=== PATIENT | female | born 1995 | race African-American/Black ===

== ENCOUNTER 2019-09-14 10:07 | Emergency (ER) | payer SELFPAY ==
[~2019-09-14] VITALS: Ht 170.2 cm; Wt 108.0 kg
[2019-09-14 11:07] VITALS: BP 134/82
--- NOTE | 2019-09-14 11:11 | PHYS DOC ---
Adult General Chief Complaint Chief Complaint: FLU SYMPTOM HPI HPI Patient is a 24 year old female who presents with fever, cough, runny nose, body aches has been ongoing for week and a half. Patient also said loss of appetite. Patient states she is improving however. Review of Systems Review of Systems Constitutional: Reports fever or chills and body aches. Eyes: Denies change in visual acuity, redness, or eye pain [] HENT: Reports nasal congestion, sore throat, and runny nose. Respiratory: Reports cough. Denies shortness of breath. Cardiovascular: No additional information not addressed in HPI [] GI: Reports nausea and vomiting. Denies abdominal pain, bloody stools or diarrhea [] : Denies dysuria or hematuria [] Musculoskeletal: Denies back pain or joint pain [] Integument: Denies rash or skin lesions [] Neurologic: Reports headache, denies focal weakness or sensory changes [] Endocrine: Denies polyuria or polydipsia [] Complete systems were reviewed and found to be within normal limits, except as documented in this note. Allergies Allergies Allergies Coded Allergies Type Severity Reaction Last Updated Verified No Known Drug Allergies 09/14/19 No Physical Exam Physical Exam Constitutional: Well developed, well nourished, no acute distress, non-toxic appearance. [] HENT: Normocephalic, atraumatic, bilateral external ears normal, bilateral tympanic membranes are pearly milligan, oropharynx moist, no oral exudates, nose turbinates are inflamed. Eyes: PERRLA, EOMI, conjunctiva normal, no discharge. [] Neck: Normal range of motion, no tenderness, supple, no stridor. [] Cardiovascular:Heart rate regular rhythm, no murmur [] Lungs & Thorax: Bilateral breath sounds clear to auscultation [] Abdomen: Bowel sounds normal, soft, no tenderness, no masses, no pulsatile masses. [] Skin: Warm, dry, no erythema, no rash. [] Neurologic: Alert and oriented X 3, normal motor function, normal sensory function, no focal deficits noted. [] Psychologic: Affect normal, judgement normal, mood normal. [] EKG EKG [] Radiology/Procedures Radiology/Procedures [] Course & Med Decision Making Course & Med Decision Making Pertinent Labs and Imaging studies reviewed. (See chart for details) The patient appears to have the Flu clinically. Discussed she is likely getting over the flu. Discussed with patient the importance of drinking plenty of fluids. I also discussed the importance of rest. It was discussed with the patient that she is contagious and to stay away from others until it has been a week since the start of her symptoms. Discussed with the patient that she can take Zyrtec per label instructions for runny nose. Also discussed the proper control of fever by rotating Tylenol and Ibuprofen at home. A medical screening exam was performed on this patient and the patient does not appear to be having a medical emergency. Her symptoms are not of sufficient severity and within reasonable medical probability it is unlikely the absence of immediate medical attention would result in placing the health of the individual (or, with respect to a woman, the health of the woman or her unborn child) in serious jeopardy, serious impairment to bodily functions, or serious dysfunction of any bodily organ or part. If , the patient is no t in labor Dragon Disclaimer Dragon Disclaimer This electronic medical record was generated, in whole or in part, using a voice recognition dictation system. Departure Departure Impression: Primary Impression: Post viral syndrome Additional Impression: Encounter for medical screening examination Disposition: HOME, SELF-CARE Condition: STABLE Referrals: NO PCP (PCP) Patient Instructions: Viral Syndrome Additional Instructions: Thank you for visiting [facility]. We appreciate you trusting us with your care. If any additional problems come up don't hesitate to return to visit us. Please follow up with your primary care provider so they can plan additional care if needed and know about the problem that you had. If symptoms worsen come back to the Emergency Department. Any concerning symptoms that start such as chest pain, shortness of air, weakness or numbness on one side of the body, running high fevers or any other concerning symptoms return to the ER. Problem Qualifiers RAFA NIETO APRN Sep 14, 2019 11:11
== END 2019-09-14 11:36 | disposition home or self-care (01) ==
LOC: ER 10:07
DX: B34.9 Viral infection, unspecified (principal); R50.9 Fever, unspecified; R09.89 Other specified symptoms and signs involving the circulatory and respiratory systems; R05 Cough; R63.0 Anorexia
CPT/HCPCS: 99281